=== PATIENT | female | born 1970 | race African-American/Black ===

== ENCOUNTER → 2020-12-02 | Outpatient (CLI) | payer OTHER | END | disposition home or self-care (01) | LOC: MI 11:30 | PROC: BQ37ZZZ Magnetic Resonance Imaging (MRI) of Right Knee (ICD-10-PCS; principal; 2020-12-02) | PROC: BR39ZZZ Magnetic Resonance Imaging (MRI) of Lumbar Spine (ICD-10-PCS; 2020-12-02) | DX: M54.5 Low back pain (principal); M54.16 Radiculopathy, lumbar region; M25.561 Pain in right knee ==